=== PATIENT | female | born 1960 | race Caucasian/White ===

== ENCOUNTER → 2023-04-23 | Outpatient (REF) | LOC: M LAB LCGH 16:40 | PROVIDERS: ATTEND Internal Medicine | DX: G03.9 Meningitis, unspecified (principal) ==

== ENCOUNTER 2023-07-20 08:24 | Day surgery (SDC) | payer MEDICARE, MEDICAID ==
[~2023-07-20] VITALS: Ht 142.2 cm; Wt 58.1 kg
[~2023-07-20 08:24] MED LIST: CIPR500S PO; DIVA125C6 PO; DIVA500T94 PO; LAMO150T3 PO; MELA3TAB24 PO; METO10TA2 PO; MIRT-10 PO; OMEP40CA5 PO; TRIH2TAB3 PO; UNRESOLVED CLARIFICATION ENTRY XX SCH; VITA200016 PO; VITA200028 PO; [UNRECOGNIZED DRUG - CODE] PO; ceFAZolin SOD 2 GM in IV 1 EA IV ONE
[2023-07-20] MEDS ORDERED: LR 1,000 ML IV SCH ×2 (09:15→13:00)
[2023-07-20] MEDS ORDERED: DULC5TAB PO (09:26)
[2023-07-20] MEDS ORDERED: [UNRECOGNIZED DRUG - CODE] XX (09:26)
[2023-07-20] MEDS ORDERED: SENN-188 PO (09:26)
[2023-07-20] MEDS ORDERED: ACE65ERTAB PO (09:26)
[2023-07-20] MEDS ORDERED: ISOVUE-300 61% 100ML VIAL As Ordered ONE (11:26)
[2023-07-20] MEDS ORDERED: LIDOCAINE 2% 100MG/5ML SDV (FOR ANES.) As Ordered ONE (11:29)
[2023-07-20] MEDS ORDERED: propofoL 200 MG/20 ML VIAL As Ordered ONE (11:29)
[2023-07-20] MEDS ORDERED: ONDANSETRON 4MG 2ML VIAL As Ordered ONE (11:29)
[2023-07-20] MEDS ORDERED: fentaNYL 100 MCG/2 ML INJECTION As Ordered ONE (11:29)
[2023-07-20] MEDS ORDERED: MIDAZOLAM INJ 2MG/2ML VIAL As Ordered ONE (11:29)
[2023-07-20] MEDS ORDERED: fentaNYL 100 MCG/2 ML INJECTION IV PRN (13:00)
[2023-07-20] MEDS ORDERED: MEPERIDINE 25 MG/ML 1ML VIAL IV PRN (13:00)
[2023-07-20] MEDS ORDERED: ONDANSETRON 4MG 2ML VIAL IV PRN (13:00)
[2023-07-20 15:03] VITALS: BP 107/53; TEMP 97.9; O2SAT 93
== END 2023-07-20 15:03 | disposition home or self-care (01) ==
LOC: M SDC 08:24
PROVIDERS: ATTEND Urology
DX: N20.0 Calculus of kidney (principal); N39.0 Urinary tract infection, site not specified; E21.3 Hyperparathyroidism, unspecified; K59.00 Constipation, unspecified; D64.9 Anemia, unspecified; M81.0 Age-related osteoporosis without current pathological fracture; G80.9 Cerebral palsy, unspecified; Z99.3 Dependence on wheelchair; G40.909 Epilepsy, unspecified, not intractable, without status epilepticus; Z79.899 Other long term (current) drug therapy
CPT/HCPCS: 52332; 52352; 74420; 82365; C1769; C2617; J0690; J1100; J2250; J2405; J3010; Q9967

== ENCOUNTER → 2024-09-24 | Outpatient (REF) | payer MEDICARE, MEDICAID ==
[~2024-09-24] MED LIST changes: +ACE65ERTAB PO; +DULC5TAB PO; +SENN-188 PO; -UNRESOLVED CLARIFICATION ENTRY XX SCH; +[UNRECOGNIZED DRUG - CODE] XX; -ceFAZolin SOD 2 GM in IV 1 EA IV ONE
[2024-09-24 19:04] LABS: APPEARANCE, URINE TURBID (CLEAR); BACTERIA, URINE AUTO 1+ (NEGATIVE); BILIRUBIN, URINE AUTO NEGATIVE (NEGATIVE); BLOOD, URINE BLOOD 1+ (NEGATIVE); COLOR, URINE AMBER (YELLOW); GLUCOSE, URINE (UA) AUTO NEGATIVE (NEGATIVE); KETONE, URINE AUTO NEGATIVE (NEGATIVE); LEUKOCYTE ESTERASE, URINE AUTO 3+ (NEGATIVE); NITRITE, URINE AUTO POSITIVE (NEGATIVE); PROTEIN, URINE AUTO 1+ mg/dL (NEGATIVE); RBC, URINE AUTO 94 /HPF (0-3); SPECIFIC GRAVITY URINE AUTO 1.012 (1.002-1.035); SQUAMOUS EPITHELIAL CELL UR AU 0 /HPF (0-6); UROBILINOGEN, URINE AUTO 0.2 mg/dL (0.0-2.0); WBC, URINE AUTO TNTC /HPF (0-3)
== END ==
LOC: EEVIPCON 17:01 → M SMT 17:01
PROVIDERS: ATTEND Urology
DX: R32 Unspecified urinary incontinence (principal)